=== PATIENT | male | born 1995 | race African-American/Black ===

== ENCOUNTER 2016-11-11 00:20 | Inpatient (IN) | payer SELFPAY ==
[~2016-11-11] VITALS: Ht 188 cm; Wt 94.9 kg
--- NOTE | 2016-11-11 00:26 | NUR ---
PT AUNG BLS. TAKEN TO BED 7
[2016-11-11 00:38] VITALS: BP 145/86
[2016-11-11] MEDS ORDERED: LIDOCAINE 1% 500 MG/50 ML VIAL INJ ONE (00:45)
--- NOTE | 2016-11-11 01:45 | NUR ---
21 YO MALE PATIENT PRESENTS TO ED WITH POST SUICIDAL TRUAMA TO LT WRIST . PT STATES HE IS STRESSED OUT. DENIES N/V/D; SKIN IS PINK/WARM/DRY; AAOX4 WITH EVEN AND STEADY GAIT; LUNGS CLEAR BL; HR EVEN AND REGULAR; PT DENIES ANY FEVER, CP, SOB, OR COUGH AT THIS TIME; PATIENT STATES PAIN OF 0/10 AT THIS TIME; VSS; PATIENT POSITIONED FOR COMFORT; HOB ELEVATED; BEDRAILS UP X2; BED DOWN. ER MD MADE AWARE OF PT STATUS.
[2016-11-11 02:05] LABS: BASOPHILS # (AUTO) 0.1 K/uL (0.00-0.22); EOSINOPHILS # (AUTO) 0.1 K/uL (0-0.4); EOSINOPHILS % (AUTO) 0.9 % (0.0-4.0); HEMATOCRIT 45.1 % (36-52); HEMOGLOBIN 14.5 g/dL (12.0-18.0); LYMPHOCYTES # (AUTO) 0.6 K/uL (2.0-11.5); LYMPHOCYTES % (AUTO) 4.9 % (20.5-51.1); MEAN CORPUSCULAR HEMOGLOBIN 31 pg (27-31); MEAN CORPUSCULAR HGB CONC 32 g/dL (33-37); MEAN CORPUSCULAR VOLUME 96 fL (80-94); MONOCYTES % (AUTO) 8.1 % (1.7-9.3); NEUTROPHILS # (AUTO) 10.2 K/uL (1.8-7.7); PLATELET COUNT (AUTO) 145 K/uL (140-450); RED BLOOD CELL COUNT(AUTO) 4.72 MIL/uL (4.20-6.10); RED CELL DISTRIBUTION WIDTH 12.4 % (11.6-13.7)
[2016-11-11 02:17] LABS: CARBON DIOXIDE 27.8 mmol/L (21-32); CHLORIDE 105 mmol/L (98-107); GFR ARICAN-AMERICAN 120 mL/min (>90); GFR NON ARICAN-AMERICAN 99 mL/min (>90); GLUCOSE 112 mg/dL (74-106); POTASSIUM 3.8 mmol/L (3.5-5.1); SODIUM SERUM 142 mmol/L (136-145); UREA NITROGEN, BLOOD 7 mg/dL (7-18)
[2016-11-11 02:18] LABS: NEUTROPHILS % (AUTO) 85.1 % (42.2-75.2)
[2016-11-11 02:25] LABS: ALANINE AMINOTRANSFERASE 29 U/L (12-78); ALBUMIN 4.2 g/dL (3.4-5.0); ALCOHOL, BLOOD < 3 mg/dL (<3); ALKALINE PHOSPHATASE 43 U/L (46-116); ASPARTATE AMINOTRANSFERASE 27 U/L (15-37); TOTAL BILIRUBIN 0.7 mg/dL (0.0-1.0); TOTAL PROTEIN, SERUM 7.1 g/dL (6.4-8.2)
[2016-11-11 02:26] LABS: ACETAMINOPHEN < 0.5 ug/ml (10-30); SALICYLATE < 2.8 mg/dL (2.8-20.0)
[2016-11-11 03:08] LABS: AMPHETAMINE, URINE NEG. ng/ml (NEG <=1000); BARBITURATE, URINE NEG. ng/ml (NEG <=200); BENZODIAZEPINE, URINE NEG. ng/mL (NEG <=200); CANNABINOID, URINE POS. ng/mL (NEG <=50); COCAINE, URINE NEG. ng/mL (NEG <=300); OPIATE, URINE NEG. ng/mL (NEG <=2000); PHENCYCLIDINE SCREEN,URINE NEG. ng/mL (NEG <=25)
[2016-11-11] MEDS ORDERED: ACETAMINOPHEN 325 MG TAB PO PRN (03:55)
[2016-11-11] MEDS ORDERED: DOCUSATE SODIUM 100 MG GELCAP PO PRN (03:55)
[2016-11-11] MEDS ORDERED: ONDANSETRON 4 MG/2 ML VIAL IVP PRN (03:55)
[2016-11-11] MEDS ORDERED: HYDROcodone/APAP 5/325 MG 1 TAB TAB PO PRN (03:55)
[2016-11-11] MEDS ORDERED: MORPHINE SULFATE 2 MG/ML SYR IVP PRN (03:55)
[2016-11-11] MEDS ORDERED: NACL 0.9% 1,000 ML IV ONE (04:00)
--- NOTE | 2016-11-11 04:00 | NUR ---
ASLEEP NO DISTRESS NOTED.VSS.
[2016-11-11 05:45] LABS: BILIRUBIN,DIRECT 0.1 mg/dL (0.0-0.3); CHOL/HDL RATIO 1.9 (1-4.5); FREE T4 (FREE THYROXINE) 1.24 ng/dL (0.76-1.46); MAGNESIUM 1.9 mg/dL (1.8-2.4); PHOSPHORUS 2.7 mg/dL (2.5-4.9); THYROID STIMULATING HORMONE 0.54 uIU/mL (0.34-3.76)
--- NOTE | 2016-11-11 05:59 | NUR ---
PT ASLEEP. VS WNL. NO DISTRESS NOTED.
[2016-11-11 06:01] LABS: INR 1.3 (0.8-1.2); PARTIAL THROMBOPLASTIN TIME 25.4 secs (22-35.6); PROTHROMBIN TIME 12.5 secs (10.8-13.4)
--- NOTE | 2016-11-11 07:35 | NUR ---
REPORT GIVEN TO ELIANA VARGAS.
--- NOTE | 2016-11-11 07:45 | NUR ---
Patient will be admitted to care of DR. MARCUS. Admited to ICU. Will go to room ICU 3. Belongings list completed. Report to ELIANA VARGAS.
--- NOTE | 2016-11-11 07:50 | NUR ---
RECEIVED FROM ER. JUANY CRUZ , PT IS AWAKE ALERT ABLE TO GET OUT FROM BED AND WALK TO BED, HE IS ON ROOM AIR, SKIN DRY AND WARM TO TOUCH . THERE IS SKIN LACERATION AND HAS BEEN REPAIR WITH SUTURE 6CM ACROSS THE LEFT WRIST.IV FLUID HAS # 20 ON RT AC HEP LOCK. PT. AWAKE AND WELL ORIENTED.
[2016-11-11 08:00] VITALS: BP 141/75
[2016-11-11 08:25] LABS: BASOPHILS # (AUTO) 0.1 K/uL (0.00-0.22); BASOPHILS % (AUTO) 1.6 % (0.0-2.0); EOSINOPHILS # (AUTO) 0.1 K/uL (0-0.4); EOSINOPHILS % (AUTO) 1.8 % (0.0-4.0); HEMATOCRIT 42.7 % (36-52); LYMPHOCYTES % (AUTO) 13.9 % (20.5-51.1); MEAN CORPUSCULAR HEMOGLOBIN 31 pg (27-31); MEAN CORPUSCULAR HGB CONC 33 g/dL (33-37); MEAN CORPUSCULAR VOLUME 95 fL (80-94); MONOCYTES # (AUTO) 0.7 K/uL (0.8-1.0); MONOCYTES % (AUTO) 9.6 % (1.7-9.3); NEUTROPHILS # (AUTO) 5.4 K/uL (1.8-7.7); NEUTROPHILS % (AUTO) 73.1 % (42.2-75.2); PLATELET COUNT (AUTO) 133 K/uL (140-450); RED BLOOD CELL COUNT(AUTO) 4.49 MIL/uL (4.20-6.10); RED CELL DISTRIBUTION WIDTH 12.6 % (11.6-13.7); WHITE BLOOD COUNT (AUTO) 7.3 K/uL (4.8-10.8)
[2016-11-11] MEDS: PANTOPRAZOLE 40 MG TABEC PO SCH ×2 (08:30→08:39)
[2016-11-11] MEDS ORDERED: ESCITALOPRAM 20 MG TAB PO SCH (09:00)
--- NOTE | 2016-11-11 09:00 | NUR ---
PT REFUSE TO TAKE PO MED [place] .
[2016-11-11 09:05] LABS: ANION GAP 9.6 (8-16); CALCIUM 8.7 mg/dL (8.5-10.1); CARBON DIOXIDE 30.5 mmol/L (21-32); POTASSIUM 4.1 mmol/L (3.5-5.1)
--- NOTE | 2016-11-11 10:00 | NUR ---
REPOSITION PT AWAKE AND ALERT QUIET AND COPPERAT WHEN GIVE CARE
[2016-11-11 12:00] VITALS: BP 120/84
--- NOTE | 2016-11-11 12:00 | NUR ---
AWAKE AND ALERT LUNCH TOOK ABOUT 50% pluse FAMILY BRING HIM OUTSIDE FOOD.
[2016-11-11 12:12] LABS: APPEARANCE,URINE CLEAR (CLEAR); BILIRUBIN,URINE NEGATIVE (NEGATIVE); BLOOD, URINE NEGATIVE (NEGATIVE); COLOR,URINE RED (YELLOW); LEUKOCYTE ESTERASE ,URINE NEGATIVE (NEGATIVE); NITRITE, URINE NEGATIVE (NEGATIVE); PROTEIN,URINE NEGATIVE (NEGATIVE); UGLUCOSE NEGATIVE (NEGATIVE); UROBILINOGEN,URINE 0.2 EU/dL (0.2 - 1)
[2016-11-11 12:23] LABS: BACTERIA,URINE None Seen /HPF (None Seen); RBC,URINE NONE SEEN /HPF (0-5); SQUAMOUS EPITHELIAL CELL,UR 0-3 (FEW) /LPF (0-3 (FEW)); WBC,URINE NONE SEEN /HPF (0-5)
--- NOTE | 2016-11-11 13:00 | NUR ---
CALLED DR. CASTRO. MESSAGE LEFT RE: CONSULT. FACE SHEET FAXED TO HIS OFFICE.
--- NOTE | 2016-11-11 14:00 | NUR ---
VISIT BY HIS MOTHER AND SITER AT BEDSIDE.
[2016-11-11 16:00] VITALS: BP 120/84
--- NOTE | 2016-11-11 16:17 | NUR ---
C/O PAIN ON HIS LEFT WRIST TEMP 98.7 .MEDICATION GIVEN ORDERED.
--- NOTE | 2016-11-11 18:19 | NUR ---
SEEN BY , ORDER RECEIVED TO KEEP IV HEP LOCK,AND .
--- NOTE | 2016-11-11 18:55 | NUR ---
SEEN BY DR JOSEPH AT BED SIDE P. IS CLEAR FROM [id number] ,
[2016-11-11 19:00] VITALS: BP 120/68
--- NOTE | 2016-11-11 19:10 | NUR ---
RECEIVED PATIENT REPORT FROM DAY SHIFT RN ALICIA. 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 VITALLY STABLE. ON ROOM AIR. WITH PERIPHERAL IV ON LEFT ARM SALINE LOCK INTACT. WITH LEFT ARM WRIST WOUND FROM PREVIOUS SELF INFLICTED CUT OPEN TO AIR.
[2016-11-11] MEDS ORDERED: BACI-389 TP (19:17)
--- NOTE | 2016-11-11 19:45 | NUR ---
SEEN AND EXAMINED BY DR. GANNON ON THE BEDSIDE. FOR DISCHARGE HOME, ORDERED BY DR. GANNON. DISCHARGE INSTRUCTIONS GIVEN AND INSTRUCTED AND ALSO BY DR. GANNON. TAKE HOME MED OINTMENT GIVEN.
--- NOTE | 2016-11-11 20:10 | NUR ---
DISCHARGED HOME ORDERED BY DR. GANNON. DISCHARGE PACKET GIVEN AND INSTRUCTED. NO SIGNS OF DISTRESS, DIZZINESS OR DISCOMFORT AT THIS TIME. BUS PASS AND OINTMENT TAKE HOME MED GIVEN REQUESTED. AWAKE, ALERT, ORIENTED, AMBULATORY.
== END 2016-11-11 20:10 | disposition home or self-care (01) | DRG 876 ==
LOC: MED 00:20 → MIC 03:54
PROVIDERS: ADMIT Student in an Organized Health Care Education/Training Program; ATTEND Student in an Organized Health Care Education/Training Program
PROC: 0XQH0ZZ Repair Left Wrist Region, Open Approach (ICD-10-PCS; principal; 2016-11-11)
PROC: 3E0234Z Introduction of Serum, Toxoid and Vaccine into Muscle, Percutaneous Approach (ICD-10-PCS; 2016-11-11)
DX: F32.1 Major depressive disorder, single episode, moderate (principal); R45.851 Suicidal ideations; S61.512A Laceration without foreign body of left wrist, initial encounter; F12.10 Cannabis abuse, uncomplicated; F17.210 Nicotine dependence, cigarettes, uncomplicated; D72.829 Elevated white blood cell count, unspecified; X78.1XXA Intentional self-harm by knife, initial encounter; Y93.89 Activity, other specified; Y99.8 Other external cause status; Y92.008 Other place in unspecified non-institutional (private) residence as the place of occurrence of the external cause; Z82.49 Family history of ischemic heart disease and other diseases of the circulatory system; Z23 Encounter for immunization
CPT/HCPCS: 36415; 71010; 80048; 80053; 80305; 81001; 82150; 82248; 83036; 83605; 83690; 83735; 83880; 84100; 84439; 84443; 85025; 85610; 85730; 87040; 87081; 90471; 90715; 93005; 99285; G0480; G0482; J0696; J2001; J7030; J7060; Q0092